=== PATIENT | female | born 1960 | race Caucasian/White ===

== ENCOUNTER → 2024-04-03 09:24 | Outpatient (REF) | payer BC, SELFPAY | LOC: RCS 09:24 | PROVIDERS: ATTENDING PHYSICIAN Internal Medicine Cardiovascular Disease; FAMILY PHYSICIAN Family Medicine | DX: R06.09 Other forms of dyspnea (principal); E78.5 Hyperlipidemia, unspecified | CPT/HCPCS: 93017; 93350 ==

== ENCOUNTER → 2024-06-02 09:25 | Outpatient (REF) | payer BC, SELFPAY | LOC: HWRAD 09:25 | PROVIDERS: ATTENDING PHYSICIAN Family Medicine | DX: E01.0 Iodine-deficiency related diffuse (endemic) goiter (principal) | CPT/HCPCS: 76536 ==

== ENCOUNTER 2024-11-04 06:18 | Day surgery (SDC) | payer OTHER, SELFPAY | END 2024-11-04 08:42 | disposition home or self-care (01) | LOC: GI 06:18 | PROVIDERS: ATTENDING PHYSICIAN Specialist | DX: Z12.11 Encounter for screening for malignant neoplasm of colon (principal); D12.0 Benign neoplasm of cecum; Z86.0101 Personal history of adenomatous and serrated colon polyps | CPT/HCPCS: 45385; 88305 ==

== ENCOUNTER → 2025-06-23 13:41 | Outpatient (REF) | payer OTHER, SELFPAY | LOC: HWRAD 13:41 | PROVIDERS: ATTENDING PHYSICIAN Family Medicine | DX: E04.1 Nontoxic single thyroid nodule (principal) | CPT/HCPCS: 76536 ==